=== PATIENT | female | born 1950 | race Caucasian/White ===

== ENCOUNTER → 2023-12-15 | Outpatient (CLI) | payer MEDICARE ==
--- NOTE | 2023-12-15 12:13 | P.SLEEP ---
History of Present Illness DATE: 12/15/2023 CONSULTATION/NEW PATIENT EVALUATION HISTORY OF PRESENT ILLNESS/SLEEP-WAKE EVALUATION: 73-year-old lady had been evaluated in the sleep center for possible obstructive sleep apnea hypopnea syndrome. SLEEP SCHEDULE: Usually sleep schedule from midnight until 10 AM. FALLING ASLEEP: Sometimes patient has difficulties with falling asleep. DURING SLEEP: Patient has extremely loud snoring and witnessed episodes of stop breathing during the sleep. Patient wakes up from sleep 3 times without nocturia. No history of hypnogogical hallucinations, sleep paralysis, or cataplexy. DURING THE DAY/WAKE STATE: Patient denied any significant excessive daytime sleepiness. Hammon sleepiness scale is 2. Patient doesn't take naps. PAST MEDICAL HISTORY: Atrial fibrillation, left bundle branch block, hyperlipidemia, hypertension. PAST SURGICAL HISTORY: Partial hysterectomy, cholecystectomy. MEDICATIONS: Rosuvastatin 20 mg once a day, lisinopril 2.5 mg once a day, metoprolol 25 mg once a day. SOCIAL HISTORY: Negative for smoking or using alcohol. FAMILY HISTORY: Stroke, diabetes by her mother and thyroid problems by his sister. REVIEW OF SYSTEMS: Loud snoring, multiple awakenings from sleep. No fevers. No double vision. No recent chest pain. No shortness of breath. No abdominal pain. No bleeding episodes. No blood in urine. No seizure episodes. PHYSICAL EXAMINATION: GENERAL: A pleasant patient without any distress. VITAL SIGNS: BP 132/82 , HR 66 , RR 16 , weight 146 pounds, height 5 foot 4 inches, body mass index 25, temperature 98.1, oxygen saturation at room air 97% . HEENT: PERRLA, EOMI. Evaluation of oropharynx showed tongue protrudes midline, low position of soft palate Mallampati 4, retrognathia 2 mm. NECK: Supple. No JVD. Thyroid is not palpable. 14-3/4 inches in circumference. LUNGS: Clear to percussion and to auscultation. Good air exchange. No wheezing or rhonchi. HEART: S1, S2 regular. No murmurs, gallops or rubs. ABDOMEN: Soft and nontender. Bowel sounds are present. No organomegaly appreciated. EXTREMITIES: No clubbing or cyanosis. LABEL DESIGNER: Awake, alert, and oriented x3. Cranial nerves 2 to 7 intact. There is no fasciculation or atrophy noted. No focal deficits observed. ASSESSMENT: 1. Loud snoring, witnessed episodes of stop breathing during the sleep, extremely low position of soft palate Mallampati 4, retrognathia 2 mm. Obstructive sleep apnea-hypopnea syndrome. 2. History of atrial fibrillation. 3. Hypertension. 4. Hyperlipidemia. 5 history of left bundle branch block. 6 . Status post cholecystectomy. 7. Status post partial hysterectomy. PLAN: 1. Polysomnography for evaluation of patient's breathing during sleep. 2. CPAP/BiPAP titration if sleep study confirms obstructive sleep apnea- hypopnea syndrome. 3. Preferable position during sleep on the side. 4. No driving if patient feels any sleepiness. Patient is aware of civil and criminal liability for unsafe driving. 5. Sleep hygiene with regular sleep time for at least 7.5-8 hours. 6. Watching weight. Thank you very much for referring this patient for consultation. Sincerely, Arturo Moreno MD, PhD, FAASM. Diplomat of [place] [employer], Sleep Medicine Board by [place] [employer] Campaign Fundraiser of [facility] [place] cc: Gloria Maharaj MD Ajay Krishen, MD Past Medical History History of Any Multi-Drug Resistant Organisms: None Reported Past Surgical History: Appendectomy, Cholecystectomy, Hysterectomy Additional Past Surgical History / Comment(s): july 2014 had appendectomy Past Anesthesia/Blood Transfusion Reactions: No Reported Reaction Past Psychological History: No Psychological Hx Reported Past Alcohol Use History: None Reported Past Drug Use History: None Reported Medications and Allergies Home Medications Medication Instructions Recorded Confirmed Type No Known Home Medications 09/22/14 09/22/14 History Allergies Allergy/AdvReac Type Severity Reaction Status Date / Time No Known Allergies Allergy Verified 09/28/14 13:33 Sleep Note - Sleep Note Sleep Note: Temperature: Pulse Rate: Respiratory Rate: Blood Pressure: SpO2: Height: Weight: BMI: Neck Circumference:
== END ==
LOC: 3 N SLEEP 11:42
PROVIDERS: ATTEND Internal Medicine
DX: G47.33 Obstructive sleep apnea (adult) (pediatric) (principal); I48.91 Unspecified atrial fibrillation; I10 Essential (primary) hypertension; E78.5 Hyperlipidemia, unspecified; Z90.49 Acquired absence of other specified parts of digestive tract; Z98.890 Other specified postprocedural states; Z90.711 Acquired absence of uterus with remaining cervical stump; Z86.79 Personal history of other diseases of the circulatory system; M26.19 Other specified anomalies of jaw-cranial base relationship; Z87.891 Personal history of nicotine dependence
CPT/HCPCS: 99202

== ENCOUNTER → 2023-12-23 | Outpatient (CLI) | payer MEDICARE ==
[2023-12-23 18:26] LABS: HCT 43.5 % (37.2-46.3); MCH 29.3 pg (27.0-32.0); MCHC 32.2 g/dL (32.0-37.0); Mean Platelet Volume 11.3 FL (9.5-12.2); NRBC Per 100 WBC 0 X 10*3/uL (0.00-0.01); Platelet Count 219 X 10*3/uL (140-440); RBC 4.78 X 10*6/uL (4.10-5.20); RDW 12.4 % (11.5-14.5); WBC 8.56 X 10*3/uL (4.50-10.00)
[2023-12-23 18:41] LABS: Blood Urea Nitrogen 11.6 mg/dL (9.0-27.0); Carbon Dioxide 29.4 mmol/L (21.6-31.8); Chloride 104 mmol/L (96-109); Potassium 4.5 mmol/L (3.5-5.5); Sodium 142 mmol/L (135-145)
== END | disposition home or self-care (01) ==
LOC: LABPAT 13:30
PROVIDERS: ATTEND Internal Medicine Clinical Cardiac Electrophysiology
DX: Z01.812 Encounter for preprocedural laboratory examination (principal); I48.0 Paroxysmal atrial fibrillation; I42.9 Cardiomyopathy, unspecified; I44.7 Left bundle-branch block, unspecified
CPT/HCPCS: 80051; 82565; 84520; 85027

== ENCOUNTER 2024-01-01 13:29 | Day surgery (SDC) | payer BC, MEDICARE ==
[2023-12-29 15:47] VITALS: BMI 24.9
[2024-01-01] MEDS: SODIUM CHLORIDE 0.9% 1,000 ML IV SCH (14:00)
[2024-01-01 14:20] VITALS: RESP 16
[2024-01-01 14:29] LABS: ALT 29 U/L (4-34); AST 29 U/L (14-36); Magnesium 2.1 mg/dL (1.6-2.3)
[2024-01-01] MEDS ORDERED: fentaNYL (PF) 50 MCG/ML 2 ML AMP ONE (15:00)
[2024-01-01] MEDS ORDERED: PROPOFOL 10 MG/ML 20 ML VIAL IV ONE (15:00)
[2024-01-01] MEDS ORDERED: ceFAZolin 1 GM/50 ML BAG (PMX) ONE (15:00)
[2024-01-01] MEDS ORDERED: MIDAZOLAM 2 MG/2 ML VIAL ONE (15:00)
[2024-01-01] MEDS ORDERED: ISOPROTERENOL 250 MCG/1.25 ML SYR IV ONE (15:00)
[2024-01-01] MEDS ORDERED: LIDOCAINE 1% INJ 10MG/ML (20 ML MDV) ONE ×3 (15:21→17:08)
[2024-01-01] MEDS: LIDOCAINE 1% INJ 10MG/ML (20 ML MDV) SQ ONE ×2 (15:26→16:59)
--- NOTE | 2024-01-01 16:23 | P.HPCAR ---
History of Present Illness This is Dr. Berg dictating an H/P on this patient The patient was interviewed and examined IMPRESSION / ASSESSMENT: Recurrent SVT, sustained with RVR New onset cardiomyopathy Left bundle branch block pattern on twelve-lead EKG PLAN: Diagnostic EP study to evaluate SVT Possible implantation of loop monitor/possible ablation HPI Patient has had recurrent episodes of palpitations with documented sustained SVT was detected on the Holter monitor No syncope recently no chest discomfort ROS: No fever chills or rigors, no cough, phlegm or expectoration, no nausea, vomiting or diarrhea, no hematuria, dysuria, no musculoskeletal complaints, no strokes or seizures, no skin lesions. EXAMINATION: Pulse rate 76 beats minute, blood pressure 124/68 mmHg, afebrile Breath sounds are clear no rhonchi no crackles Heart sounds S1-S2 normal lungs are clear to auscultation Abdomen soft No JVD no lower extremity edema REVIEW OF LABS, ECG & MEDICAL DATA Magnesium 2.1 normal AST and ALT Normal TSH 1.1 Physical Exam Vitals: Vital Signs Temp Pulse Resp BP Pulse Ox 01/01/24 13:52 98.5 F 76 16 124/68 95 Intake and Output 01/01/24 01/01/24 01/01/24 06:59 14:59 22:59 Intake Total 0 Balance 0 Intake: IV 0 Other: Weight 65.5 kg Past Medical History Past Medical History: Atrial Fibrillation Additional Past Medical History / Comment(s): See Dr Berg's H&P, left bundle branch block,currently being worked up for sleep apnea History of Any Multi-Drug Resistant Organisms: None Reported Past Surgical History: Appendectomy, Cholecystectomy, Hysterectomy Additional Past Surgical History / Comment(s): colonoscopies Past Anesthesia/Blood Transfusion Reactions: No Reported Reaction Additional Past Anesthesia/Blood Transfusion Reaction / Comment(s): no hx blood transfusion Smoking Status: Former smoker - Past Family History Mother Family Medical History: No Reported History Sister(s) Family Medical History: Cancer Additional Family Medical History / Comment(s): skin Physical Examination Vital Signs Temp Pulse Resp BP Pulse Ox 01/01/24 13:52 98.5 F 76 16 124/68 95 Intake and Output 01/01/24 01/01/24 01/01/24 06:59 14:59 22:59 Intake Total 0 Balance 0 Intake: IV 0 Other: Weight 65.5 kg Results Cardiac Enzymes 01/01/24 Range/Units 14:00 AST 29 (14-36) U/L Comprehensive Metabolic Panel 01/01/24 Range/Units 14:00 AST 29 (14-36) U/L ALT 29 (4-34) U/L Current Medications Generic Name Dose Route Start Last Admin Trade Name Freq PRN Reason Stop Dose Admin Sodium Chloride 1,000 mls @ 50 mls/hr 01/01/24 05:41 01/01/24 14:00 Saline 0.9% IV 01/31/24 05:42 0 mls .Q20H LAZARO Administration Lactated Ringer's 1,000 mls @ 20 mls/hr 01/01/24 05:41 Lactated Ringers IV 01/31/24 05:42 .Q24H LAZARO Intake and Output 01/01/24 01/01/24 01/01/24 06:59 14:59 22:59 Intake Total 0 Balance 0 Intake: IV 0 Other: Weight 65.5 kg Patient Weight 01/02/24 06:59 Weight 65.5 kg
--- NOTE | 2024-01-01 16:53 | P.EPPROC ---
- EP Procedure Note Electrophysiology Procedure Note: Diagnosis Recurrent SVT with RVR, sustained Underlying left bundle branch block pattern New onset mild cardiomyopathy of 45 to 50% Final diagnosis Normal sinus node function Normal AV node function Left bundle branch block morphology with an HV interval of 73 ms No evidence for slow pathway conduction or accessory pathway conduction No response to Para-Hisian pacing No evidence for AV roxanne reentry accessory pathway conduction or AVRT Plan Implantation of loop monitor for detection of atrial fibrillation and atrial tachycardia Monitoring LV function and monitoring for conduction system disease Cardiac MRI in the future to look for any LV scar/delayed enhancement/possible left bundle related cardiomyopathy transfer tech Details Patient was brought to the EP lab in a fasting state. Written informed consent was obtained prior to the procedure. The left groin is prepped and draped as a protocol and venous sheaths were placed. Via these catheters were placed in the high right atrium, coronary sinus, His bundle area and right ventricle Full diagnostic EP study was performed both on and off Isopril as well as during Isuprel washout Sinus cycle length 883 ms, AR interval 121 ms, QRS 163 ms of a left bundle branch block morphology and QT interval 433 ms AH 50 ms and HV interval 73 ms AV node Wenckebach block 370 ms, VA Wenckebach block 330 ms Sinus node recovery times at 600, 500 and, 400 ms were 116 6 ms, 1192 and 111 0 ms Normal response to Para-Hisian pacing both in the baseline state and during Isuprel infusion With atrial extra stimulation at 600/290 ms, echo beat was noted. Single echo beats down to 600/270 ms However there was no evidence for AV roxanne reentry nor AVRT Atrial and ventricular stimulation were performed in the baseline state Thereafter high-dose Isopril was infused Atrial stimulation from the high right atrium with up to double extrastimuli, extrastimulation from the coronary sinus after double extrastimuli and from the right ventricle performed Straight pacing performed Ventricular pacing performed No evidence for any SVT Isopril was stopped and during the washout. A full EP study once again showed noninduciblity of any arrhythmias
--- NOTE | 2024-01-01 17:15 | P.EPPROC ---
- EP Procedure Note Electrophysiology Procedure Note: Loop monitor implant Primary physicians: Dr. Gloria Maharaj Police Dispatcher: Dr. Berg Indication: Recurrent SVT, underlying bundle branch block left bundle type, mild cardiomyopathy. EP study noninducible for any SVT Patient was brought to the EP lab in a fasting state. Written informed consent was obtained prior to the procedure. The left pectoral area was prepped and draped per protocol. Intravenous antibiotic was administered preoperatively. A subcutaneous Loop monitor was implanted successfully and the wound was closed per protocol. The device was programmed to detect significant los- arrhythmic and tachy-arrhythmic events, per protocol. Device and programming details: A-fib monitoring, monitoring for conduction system disease
--- NOTE | 2024-01-01 17:19 | P.PRLE ---
RE: Edna Adamson Dear Gloria Edna Adamson underwent a diagnostic EP study to see if she had any inducible AV roxanne reentry or AVRT The EP study showed no evidence for slow pathway conduction accessory pathway conduction She has had brief episodes of sustained SVT that are most likely parts representative of atrial tachycardia/early atrial fibrillation In addition she has had a left bundle branch block and now more recently a mild cardiomyopathy has been detected with an ejection fraction of 45 to 50% If her cardiac MRI turns out to be completely normal without any evidence for LV scar then this most likely represents left bundle branch block mediated cardiomyopathy in a woman Obviously coronary artery disease will have to be ruled out too I implanted a loop monitor to monitor for episodes of atrial fibrillation and also for assessment of any conduction system disease that could arise in the future I plan to perform a cardiac MRI and a coronary evaluation and follow her LV function She has already been started on metoprolol 25 mg p.o. daily along with lisinopril 2.5 mg p.o. daily and I would also recommend a sleep apnea study as well as avoidance of alcohol and nicotine products Thank you for entrusting me with the care of the patient Warm regards Sincerely Stevo Berg
[2024-01-01] MEDS ORDERED: ACETAMINOPHEN TAB 325 MG TAB PO PRN (17:21)
[2024-01-01] MEDS: LACTATED RINGERS 1,000 ML IV SCH (18:01)
[2024-01-02] MEDS: ACETAMINOPHEN IV (For NPO) 1,000 MG in EMPTY BAG 1 BAG IVPB ONE (04:36)
[2024-01-02 08:17] VITALS: BP 145/74; PULSE 68; TEMP 98
--- NOTE | 2024-01-02 09:11 | P.DS ---
Providers Date of admission: 01/01/2024 Attending physician: Stevo Berg Primary care physician: Gloria [facility] Course: The patient is a 73-year-old female who underwent EP study yesterday with Dr. Espinoza. The patient has SVT with RVR with new onset of cardiomyopathy. EP study showed normal sinus and AV node function. Underlying left bundle branch block with no evidence for slow pathway conduction or accessory pathway conduction. There was also no response to Para-Hisian pacing. The patient underwent loop monitor placement for detection of atrial fibrillation and atrial tachycardia. Patient was interviewed and examined resting comfortably in bed. She states she had no complications overnight. She denies any discomfort in her left groin. GENERAL: Well-appearing, well-nourished and in no acute distress. NECK: Supple without JVD or thyromegaly. LUNGS: Breath sounds clear to auscultation bilaterally. Respiration equal and unlabored. No wheezes, rales or rhonchi. HEART: Regular rate and rhythm without murmurs, rubs or gallops. S1 and S2 heard. EXTREMITIES: Normal range of motion, no edema. No clubbing or cyanosis. Peripheral pulses intact and strong. Left groin site is clean dry and intact. TELEMETRY: Sinus rhythm overnight IMPRESSION: Recurrent SVT with RVR No inducible pathways during EP study Cardiomyopathy, EF 45 to 50% PLAN: Continue lisinopril and beta-karly for cardiomyopathy Consideration for adding spironolactone outpatient Patient may be discharged for outpatient follow-up I am dictating on behalf of Dr Stevo Berg's history/physical and assessment/plan. Plan - Discharge Summary Discharge Rx Participant: No New Discharge Prescriptions: Continue Calcium 500 W/ Vitamin D3 25 1 dose PO DAILY Vit C/E/Zn/Coppr/Lutein/Zeaxan [Preservision Areds 2 Softgel] 2 each PO DAILY Rosuvastatin [Crestor] 20 mg PO HS Metoprolol Succinate (ER) [Toprol XL] 25 mg PO DAILY lisinopriL [Zestril] 2.5 mg PO DAILY Discharge Medication List Calcium 500 W/ Vitamin D3 25 1 dose PO DAILY 12/29/23 [History] Metoprolol Succinate (ER) [Toprol XL] 25 mg PO DAILY 12/29/23 [History] Rosuvastatin [Crestor] 20 mg PO HS 12/29/23 [History] Vit C/E/Zn/Coppr/Lutein/Zeaxan [Preservision Areds 2 Softgel] 2 each PO DAILY 12/29/23 [History] lisinopriL [Zestril] 2.5 mg PO DAILY 12/29/23 [History] Follow up Appointment(s)/Referral(s): Stevo Berg MD [STAFF PHYSICIAN] - 1 Week (Device clinic follow-up in 1 week Follow-up with Dr. Berg in 3 months) Activity/Diet/Wound Care/Special Instructions: Post EP study - Ablation instructions 1. Keep access sites dry for 2 days. 2. No heavy lifting or straining for 2 days. 3. Avoid bending the hips repeatedly for 2 days. 4. You may go up and down stairs slowly Call if the following is noted 1. Bleeding, increasing swelling or pain at the access sites. 2. Increasing chest discomfort, especially upon taking a deep breath. 3. Increasing shortness of breath, at rest or with exertion. 4. Undue cough / phlegm 5. Difficulty or pain while swallowing. 6. Pain or change in color in the extremities. 7. Fever, chills, rigors. 8. Increasing headache or neurologic symptoms. 9. Dizziness, fainting, palpitations Continue metoprolol continue rosuvastatin continue lisinopril Device clinic follow-up in 7 days Keep wound dry for 7 days Discharge Disposition: HOME SELF-CARE
[2024-01-02] MEDS: METOPROLOL SUCCINATE (ER) 25 MG TAB.ER.24H PO SCH (12:09)
== END 2024-01-02 12:40 | disposition home or self-care (01) ==
LOC: CATHEP 13:29 → 6NMEDSUR 17:14 → CATHEP 01-02 12:40
PROVIDERS: ATTEND Internal Medicine Clinical Cardiac Electrophysiology
DX: I44.7 Left bundle-branch block, unspecified (principal); I48.91 Unspecified atrial fibrillation; Z90.49 Acquired absence of other specified parts of digestive tract; Z90.710 Acquired absence of both cervix and uterus; Z87.891 Personal history of nicotine dependence; Z79.899 Other long term (current) drug therapy
CPT/HCPCS: 93623; 93621; 93620; 33285; 86900; 86901; 84443; 83735; 84450; 84460; 86850; C1894; C1769; C1760; C1764; C1730 ×3; J2001

== ENCOUNTER 2024-01-13 19:39 | Outpatient (CLI) | payer MEDICARE ==
--- NOTE | 2024-01-14 10:33 | P.PCN ---
Description of Procedure: POLYSOMNOGRAPHY REPORT PROCEDURE(S)/DATE(S): Polysomnography 01/13/2024 CLINICAL: Patient has been seen in the sleep center for evaluation of obstructive sleep apnea-hypopnea syndrome. Please see my consultation. Sleep study has been done for evaluation of patient breathing during the sleep. PROCEDURE: The standard montage for clinical polysomnography included the electroencephalogram, the electrooculogram, the mentalis surface electromyography and Lead II cardiography. The respiratory battery consisted of measurements of nasal/buccal air flow, pressure transducer measurements from nose, thoracic and/or abdominal effort and intercostal surface electromyography. Video monitoring has been done to check for any parasomnia events. Nocturnal oxyhemoglobin saturations were obtained by finger oximetry. Step-sarmiento titration with positive airway pressure was utilized to control the respiratory events, if necessary. RESULTS: During the diagnostic sleep study sleep efficiency was /E decreased to 82.3 %. Latency to sleep onset was significantly prolonged to 49.0 min. Sleep architecture showed stage NI was short 1.4 %, Delta sleep was absent 0 %, REM sleep was increased to 46.3 %. Respiratory channel showed 1 obstructive apneas, 0 mixed apneas, 4 central apneas, 36 hypopneas with lowest oxygen level 79%. Total apnea hypopnea index was 6.9. Heart rate was in the range between 52 and 58, average 54. EMG showed 0 periodic limb movements per hour. IMPRESSIONS: 1. Mild obstructive sleep apnea hypopnea syndrome. 2. No significant periodic limb movements have been documented. 3. History of atrial fibrillation. 4. History of hypertension. Please see other impressions from consultation PLAN: 1. The patient will have AutoPAP treatment for correction of respiratory abnormalities during the sleep. 2. I will see patient for follow-up visit patient is also the test, evaluate clinical response on treatment and make any necessary adjustments related to mask fitting, pressure and humidification. 3. Sleep hygiene with regular time in bed for at least 7-1/2 hours. 4. No driving if feeling sleepiness. Thank you very much for allowing me to participate in the management of your patient. Sincerely, Arturo Moreno MD, PhD, FAASM. Diplomat of [place] [employer], Sleep Medicine Board by [place] [employer] Site Supervisor of [facility] [place]
== END 2024-01-14 06:00 | disposition home or self-care (01) ==
LOC: 3 N SLEEP 19:39
PROVIDERS: ATTEND Internal Medicine
DX: G47.33 Obstructive sleep apnea (adult) (pediatric) (principal); I10 Essential (primary) hypertension; I48.91 Unspecified atrial fibrillation; Z79.899 Other long term (current) drug therapy; Z87.891 Personal history of nicotine dependence
CPT/HCPCS: 95810